=== PATIENT | female | born 1955 | race Caucasian/White ===

== ENCOUNTER 2017-10-06 12:55 | Emergency (ER) | payer BC ==
[~2017-10-06] VITALS: Ht 160 cm; Wt 83.0 kg
[~2017-10-06 12:55] MED LIST: HYDACE5 PO
[2017-10-06] MEDS ORDERED: Percocet 5-3251 EACH PO (14:18)
== END 2017-10-06 14:33 | disposition home or self-care (01) ==
LOC: ER 12:55
DX: S43.015A Anterior dislocation of left humerus, initial encounter (principal); W10.9XXA Fall (on) (from) unspecified stairs and steps, initial encounter
CPT/HCPCS: 23650; 73030; 96374; 96375; 99283; J1170; J2405